=== PATIENT | female | born 1980 | race African-American/Black ===

== ENCOUNTER 2022-01-19 19:16 | Emergency (ER) | payer MEDICAID, OTHER ==
[~2022-01-19] VITALS: Ht 157.5 cm; Wt 64.9 kg
[2022-01-19] MEDS ORDERED: KETOROLAC TROMETH 60MG/2ML VIAL IM ONE (20:00)
[2022-01-19 20:49] LABS: Urine Blood 3+ /uL (Negative)
[2022-01-19 20:54] LABS: Urine Bacteria NONE SEEN /hpf (None Seen); Urine WBC 510 /hpf (0 - 5); Urine WBC Clumps PRESENT /hpf (None Seen)
[2022-01-19 20:57] LABS: Urine Specific Gravity 1.015 (1.001-1.035)
[2022-01-19 21:07] LABS: Eosinophils # (auto) 0.3 10 ^3/uL (0-0.8); Monocytes # (auto) 0.5 10 ^3/uL (0-1.3); Neutrophils # (auto) 2.8 10 ^3/uL (1.6-8.6); Nucleated Red Blood Cells % 0.1 %; White Blood Cell 5.7 10^3/uL (4.4-10.8)
[2022-01-19 21:08] LABS: Basophils # (auto) 0 10 ^3/uL (0-0.2); Basophils % (auto) 0.8 % (0.0-2.0); Eosinophils % (auto) 5.1 % (0.0-7.0); Hematocrit 32.2 % (36.0-46.0); Hemoglobin 10.2 g/dL (12.2-16.2); Lymphocytes % (auto) 35.2 % (10.0-50.0); Mean Corpuscular Hemoglobin 23.9 pg (28.0-32.0); Mean Corpuscular Hgb Conc. 31.6 g/dL (32.0-36.0); Mean Corpuscular Volume 75.6 fL (80.0-100.0); Monocytes % (auto) 9.6 % (0.0-12.0); Neutrophils % (auto) 49.3 % (37.0-80.0); Red Blood Cells 4.26 10^6/uL (4.0-5.20); Red Cell Distribution Width 14.5 % (11.8-14.3)
[2022-01-19 21:22] LABS: Albumin 3.6 g/dL (3.4-5.0); BUN/Creatinine Ratio 13.1; Calcium 8.3 mg/dL (8.5-10.1); Potassium 4.2 mmol/L (3.5-5.1)
[2022-01-19 21:25] LABS: Bilirubin, Total 0.2 mg/dL (0.2-1.0); Total Protein 8.1 g/dL (6.4-8.2)
[2022-01-19] MEDS ORDERED: CEPH-322 PO (23:29)
[2022-01-20] MEDS ORDERED: SULF400T11 PO (00:07)
[2022-01-20 00:21] VITALS: BP 137/99
== END 2022-01-20 00:21 | disposition home or self-care (01) ==
LOC: ER 19:16
DX: N94.6 Dysmenorrhea, unspecified (principal); N39.0 Urinary tract infection, site not specified; Z88.2 Allergy status to sulfonamides; Z88.5 Allergy status to narcotic agent; Z88.8 Allergy status to other drugs, medicaments and biological substances
CPT/HCPCS: 36415; 76856; 80053; 81001; 84702; 85025; 96372; 99284; J1885

== ENCOUNTER 2023-10-15 19:56 | Emergency (ER) | payer MEDICAID ==
[~2023-10-15] VITALS: Ht 162.6 cm; Wt 66.5 kg
[~2023-10-15 19:56] MED LIST: SULF400T11 PO
[2023-10-15] MEDS ORDERED: IBUP-1455 PO (22:33)
[2023-10-15] MEDS ORDERED: CYCL-839 PO (22:33)
[2023-10-15] MEDS: KETOROLAC TROMETH 60MG/2ML VIAL IM ONE (23:05)
[2023-10-15 23:06] VITALS: BP 179/87; PULSE 63; RESP 16; TEMP 97; O2SAT 97
== END 2023-10-15 23:12 | disposition home or self-care (01) ==
LOC: ER 19:56
DX: R51.9 Headache, unspecified (principal); M79.603 Pain in arm, unspecified; M54.2 Cervicalgia; M25.511 Pain in right shoulder; M25.512 Pain in left shoulder; Z88.5 Allergy status to narcotic agent; Z88.6 Allergy status to analgesic agent; Z88.1 Allergy status to other antibiotic agents; Z88.8 Allergy status to other drugs, medicaments and biological substances; W07.XXXA Fall from chair, initial encounter; Y93.89 Activity, other specified; Y92.59 Other trade areas as the place of occurrence of the external cause; Y99.8 Other external cause status
CPT/HCPCS: 70450; 71250; 72125; 74176; 96372; 99285; J1885